=== PATIENT | female | born 1960 | race Caucasian/White ===

== ENCOUNTER 2021-11-10 11:17 | Day surgery (SDC) | payer OTHER ==
[2021-11-08 18:45] VITALS: BMI 20.6
[2021-11-10 13:31] VITALS: PULSE 60
[2021-11-10 13:32] VITALS: BP 101/62; TEMP 97.6
== END 2021-11-10 13:44 | disposition home or self-care (01) ==
LOC: FASU-ENDO 11:17
PROVIDERS: ATTEND Internal Medicine Gastroenterology
PROC: 0DBH8ZX Excision of Cecum, Via Natural or Artificial Opening Endoscopic, Diagnostic (ICD-10-PCS; principal; 2021-11-10 12:40)
DX: Z86.010 Personal history of colon polyps (principal); D12.0 Benign neoplasm of cecum; K64.1 Second degree hemorrhoids